=== PATIENT | female | born 1950 | race Caucasian/White ===

== ENCOUNTER 2016-02-20 14:45 | Outpatient (RCR) | payer MEDICARE, BC ==
[~2016-02-20 14:45] MED LIST: ANTIVERT 25MG25 MG PO; MILLIPRED5 MG PO; PREMARIN 0.60.625 M1 PO; TYLENOL EXTRA500 M1 PO; XANAX XR1 MG PO; XANAX0.5 MG PO; [UNRECOGNIZED DRUG - OTHER] PO
[2016-02-20] MEDS ORDERED: ROCEPHIN 2 G2 G/VIAL IM (15:35)
[2016-02-20 15:45] VITALS: BP 164/65
[2016-02-21 07:50] VITALS: BP 138/73
[2016-02-24 07:41] VITALS: BP 129/49
[2016-02-25 07:59] VITALS: BP 118/60
[2016-02-26 08:05] VITALS: BP 112/56
== END 2016-05-20 | disposition home or self-care (01) ==
LOC: AMSURD 14:45
DX: J20.9 Acute bronchitis, unspecified (principal)
CPT/HCPCS: J0696

== ENCOUNTER 2016-06-22 15:30 | Outpatient (RCR) | payer MEDICARE, BC ==
[~2016-06-22] VITALS: Ht 162.6 cm; Wt 53.6 kg
[~2016-06-22 15:30] MED LIST changes: +ROCEPHIN 2 G2 G/VIAL IM
[2016-06-22] MEDS ORDERED: DRAMAMINE LESS25 MG PO (15:53)
[2016-06-22 16:00] VITALS: BP 138/88
[2016-06-23 07:36] VITALS: BP 106/43
[2016-06-24 07:36] VITALS: BP 141/67
[2016-06-25 07:34] VITALS: BP 116/37
[2016-06-26 07:32] VITALS: BP 134/46
[2016-06-27 07:40] VITALS: BP 128/77
[2016-06-28 07:30] VITALS: BP 123/61
[2016-06-28] MEDS ORDERED: ZANTAC150 M1 PO (07:37)
== END 2016-09-20 | disposition home or self-care (01) ==
LOC: AMSURD
DX: J20.9 Acute bronchitis, unspecified (principal)
CPT/HCPCS: J0696

== ENCOUNTER 2017-05-05 09:50 | Outpatient (RCR) | payer MEDICARE, BC ==
[~2017-05-05] VITALS: Ht 162.6 cm; Wt 52.7 kg
[~2017-05-05 09:50] MED LIST changes: +DRAMAMINE LESS25 MG PO; +ZANTAC150 M1 PO
[2017-05-05 10:27] VITALS: BP 110/53
[2017-05-06 09:36] VITALS: BP 132/80
[2017-05-07 09:45] VITALS: BP 123/54
[2017-05-08 09:40] VITALS: BP 108/61
[2017-05-09 09:51] VITALS: BP 123/42
[2017-05-10 09:59] VITALS: BP 144/86
[2017-05-11 09:53] VITALS: BP 106/71
== END 2017-05-11 13:11 | disposition home or self-care (01) ==
LOC: AMSURD 09:50
DX: J20.9 Acute bronchitis, unspecified (principal); Z88.1 Allergy status to other antibiotic agents
CPT/HCPCS: J0696

== ENCOUNTER 2017-05-13 10:31 | Outpatient (RCR) | payer MEDICARE, BC ==
[~2017-05-13] VITALS: Ht 162.6 cm; Wt 52.7 kg
[2017-05-13 10:59] VITALS: BP 127/89
[2017-05-14 09:59] VITALS: BP 115/52
[2017-05-15 10:40] VITALS: BP 135/82
[2017-05-16 09:23] VITALS: BP 125/80
[2017-05-17 11:08] VITALS: BP 126/46
[2017-05-18 11:31] VITALS: BP 115/68
[2017-05-19 09:14] VITALS: BP 119/56
== END 2017-05-19 09:20 | disposition home or self-care (01) ==
LOC: AMSURD 10:31
DX: J20.9 Acute bronchitis, unspecified (principal)
CPT/HCPCS: J0696

== ENCOUNTER → 2017-06-07 | Outpatient (CLI) | payer MEDICARE, BC ==
[2017-05-19 09:14] VITALS: BP 119/56
[2017-06-07 09:05] LABS: EOS # 0.4 (0.04-0.40); EOS % 7.4 % (1.0-5.0); HEMATOCRIT 48.4 % (37.0-47.0); HEMOGLOBIN 15.5 g/dL (12.5-16.0); LYMPH# 1.6 (1.50-4.00); MEAN CELL VOLUME 100 fl (78-100); MEAN CORPUSCULAR HEMOGLOBIN 32 pg (27-31); MEAN CORPUSCULAR HGB CONC 32 g/dL (33-37); MEAN PLATELET VOLUME 10.5 fl (7.4-10.4); MONO # 0.4 (0.20-0.80); NEU # 2.5 (1.40-6.50); PLATELET COUNT 177 K/mm3 (130-400); RED BLOOD COUNT 4.83 M/mm3 (4.10-5.30); RED CELL DISTRIBUTION WIDTH 13.4 % (11.5-14.5); WHITE BLOOD COUNT 4.9 K/mm3 (4.8-10.8)
[2017-06-07 09:13] LABS: BUN/CREATININE RATIO 9.1 (6.0-26.0); CALCIUM 8.8 mg/dL (8.4-10.2); POTASSIUM 4.5 mmol/L (3.6-5.0); TOTAL BILIRUBIN 0.6 mg/dL (0.2-1.3); TOTAL PROTEIN 7.5 g/dL (6.3-8.2)
[2017-06-07 10:21] LABS: ERYTHROCYTE SEDIMENTATION RATE 3 mm/hr (0-30)
== END ==
LOC: LAB 08:24
PROVIDERS: Internal Medicine
DX: J20.8 Acute bronchitis due to other specified organisms (principal); E78.5 Hyperlipidemia, unspecified; E04.2 Nontoxic multinodular goiter; Z12.11 Encounter for screening for malignant neoplasm of colon; Z88.1 Allergy status to other antibiotic agents

== ENCOUNTER → 2017-06-10 | Outpatient (CLI) | payer MEDICARE, BC ==
[2017-05-19 09:14] VITALS: BP 119/56
== END ==
LOC: LAB 09:27
DX: Z12.11 Encounter for screening for malignant neoplasm of colon (principal); Z88.1 Allergy status to other antibiotic agents

== ENCOUNTER 2018-01-15 07:39 | Outpatient (RCR) | payer MEDICARE, BC ==
[2018-01-07 08:13] VITALS: BP 133/71
[2018-01-08 07:45] VITALS: BP 130/55
--- NOTE | 2018-01-08 08:05 | NUR ---
Offered pt ventralgluteal site due to volume of IM injection but pt refused. Given Right dorsal gluteal per request. Pt refuses to stay for 15-20 minutes as states this is the drug I always get as it's the only one that works.
[2018-01-09 07:40] VITALS: BP 154/78
[2018-01-09 07:44] VITALS: BP 142/70
[2018-01-10 07:54] VITALS: BP 167/51
[2018-01-11 07:52] VITALS: BP 129/70
[2018-01-12 07:39] VITALS: BP 136/64
--- NOTE | 2018-01-12 07:50 | NUR ---
IM injection given to R dorsogluteal in single injection per pt request. Discuss s/e of giving single injection >2ml, pt reports understanding but refuses to have given in two injection sites.
[2018-01-13 07:30] VITALS: BP 127/89
[2018-01-14 07:32] VITALS: BP 100/43
[~2018-01-15] VITALS: Ht 162.6 cm; Wt 52.7 kg
[2018-01-15 07:40] VITALS: BP 127/78
== END 2018-01-15 09:00 | disposition home or self-care (01) ==
LOC: AMSURD 07:39
DX: J40 Bronchitis, not specified as acute or chronic (principal); J32.9 Chronic sinusitis, unspecified
CPT/HCPCS: J0696

== ENCOUNTER → 2018-03-08 | Outpatient (CLI) | payer MEDICARE, BC | LOC: LAB 07:24 | DX: E74.39 Other disorders of intestinal carbohydrate absorption (principal) ==

== ENCOUNTER → 2018-07-26 | Outpatient (CLI) | payer MEDICARE, BC ==
[~2018-07-26] VITALS: Ht 162.6 cm; Wt 52.7 kg
[~2018-07-26] MED LIST changes: +[UNRECOGNIZED DRUG - OTHER] PO
[2018-07-26 13:18] LABS: EOS # 0.3 (0.04-0.40); EOS % 5.3 % (1.0-5.0); HEMATOCRIT 47.9 % (37.0-47.0); HEMOGLOBIN 15.6 g/dL (12.5-16.0); LYMPH# 1.5 (1.50-4.00); MEAN CELL VOLUME 99 fl (78-100); MEAN CORPUSCULAR HEMOGLOBIN 32 pg (27-31); MEAN CORPUSCULAR HGB CONC 33 g/dL (33-37); MEAN PLATELET VOLUME 10.3 fl (7.4-10.4); MONO # 0.3 (0.20-0.80); NEU # 2.6 (1.40-6.50); PLATELET COUNT 164 K/mm3 (130-400); RED BLOOD COUNT 4.83 M/mm3 (4.10-5.30); RED CELL DISTRIBUTION WIDTH 13.3 % (11.5-14.5); WHITE BLOOD COUNT 4.7 K/mm3 (4.8-10.8)
[2018-07-26 13:32] LABS: ALBUMIN 4.3 g/dL (3.5-5.0); POTASSIUM 4.1 mmol/L (3.6-5.0); TOTAL BILIRUBIN 0.7 mg/dL (0.2-1.3); TOTAL PROTEIN 7.4 g/dL (6.3-8.2)
[2018-07-26 14:43] LABS: ERYTHROCYTE SEDIMENTATION RATE 2 mm/hr (0-30)
[2018-07-26 15:40] VITALS: BP 120/64
[2018-07-29 20:42] LABS: VITAMIN C AMS
== END ==
LOC: RAD 12:09
PROVIDERS: Internal Medicine
DX: Z12.11 Encounter for screening for malignant neoplasm of colon (principal); E78.2 Mixed hyperlipidemia; K90.89 Other intestinal malabsorption; E04.2 Nontoxic multinodular goiter; J44.9 Chronic obstructive pulmonary disease, unspecified

== ENCOUNTER → 2018-08-04 | Outpatient (CLI) | payer MEDICARE, BC ==
[2018-07-26 15:40] VITALS: BP 120/64
[2018-08-04 15:09] LABS: URINE WBC 0 /hpf (0-3)
[2018-08-04 16:39] LABS: URINE APPEARANCE CLEAR; URINE BILIRUBIN NEGATIVE (NEGATIVE); URINE BLOOD 50 ery/uL (NEGATIVE); URINE COLOR LT YELLOW; URINE GLUCOSE NEGATIVE (NEGATIVE); URINE KETONE NEGATIVE (NEGATIVE); URINE LEUKOCYTE ESTERASE NEGATIVE (NEGATIVE); URINE NITRATE NEGATIVE (NEGATIVE); URINE PROTEIN(semi-quant) NEGATIVE (NEGATIVE); URINE UROBILINOGEN NORMAL (NORMAL)
== END ==
LOC: RAD 15:05
PROVIDERS: Internal Medicine
DX: E04.2 Nontoxic multinodular goiter (principal); R39.15 Urgency of urination

== ENCOUNTER → 2018-08-05 | Outpatient (CLI) | payer MEDICARE, BC ==
[2018-07-26 15:40] VITALS: BP 120/64
== END ==
LOC: LAB 11:22
DX: Z12.11 Encounter for screening for malignant neoplasm of colon (principal); K90.9 Intestinal malabsorption, unspecified

== ENCOUNTER → 2018-09-30 | Outpatient (CLI) | payer MEDICARE, BC ==
[2018-07-26 15:40] VITALS: BP 120/64
[2018-09-30 15:43] LABS: URINE APPEARANCE HAZY; URINE BILIRUBIN NEGATIVE (NEGATIVE); URINE BLOOD 50 ery/uL (NEGATIVE); URINE COLOR YELLOW; URINE GLUCOSE NEGATIVE (NEGATIVE); URINE KETONE NEGATIVE (NEGATIVE); URINE LEUKOCYTE ESTERASE NEGATIVE (NEGATIVE); URINE NITRATE NEGATIVE (NEGATIVE); URINE PROTEIN(semi-quant) NEGATIVE (NEGATIVE); URINE UROBILINOGEN NORMAL (NORMAL)
== END ==
LOC: LAB 08:15
PROVIDERS: Internal Medicine
DX: R39.15 Urgency of urination (principal)

== ENCOUNTER → 2018-10-13 | Outpatient (CLI) | payer MEDICARE, BC ==
[2018-07-26 15:40] VITALS: BP 120/64
[2018-10-19 02:22] LABS: VITAMIN C AMS
== END ==
LOC: LAB 09:29
PROVIDERS: Internal Medicine
DX: K90.89 Other intestinal malabsorption (principal); R39.15 Urgency of urination

== ENCOUNTER → 2019-02-21 | Outpatient (CLI) | payer MEDICARE, BC ==
[~2019-02-21] VITALS: Ht 162.6 cm; Wt 52.7 kg
[2019-02-21 12:30] VITALS: BP 138/71
== END ==
LOC: AMSURD 12:26
DX: R00.0 Tachycardia, unspecified (principal)

== ENCOUNTER → 2019-03-02 | Outpatient (CLI) | payer MEDICARE, BC ==
[~2019-03-02] VITALS: Ht 162.6 cm; Wt 52.7 kg
[2019-03-02 09:35] LABS: EOS # 0.2 (0.04-0.40); EOS % 3.3 % (1.0-5.0); HEMATOCRIT 50.2 % (37.0-47.0); HEMOGLOBIN 16.5 g/dL (12.5-16.0); LYMPH# 1.6 (1.50-4.00); MEAN CELL VOLUME 99 fl (78-100); MEAN CORPUSCULAR HEMOGLOBIN 33 pg (27-31); MEAN CORPUSCULAR HGB CONC 33 g/dL (33-37); MEAN PLATELET VOLUME 10.3 fl (7.4-10.4); MONO # 0.3 (0.20-0.80); NEU # 3.9 (1.40-6.50); PLATELET COUNT 191 K/mm3 (130-400); RED BLOOD COUNT 5.06 M/mm3 (4.10-5.30); RED CELL DISTRIBUTION WIDTH 12.9 % (11.5-14.5)
[2019-03-02 09:53] VITALS: BP 141/55
[2019-03-02 09:57] LABS: ALBUMIN 4.3 g/dL (3.4-4.8); POTASSIUM 3.6 mmol/L (3.5-5.1)
[2019-03-02 09:59] LABS: CALCIUM 9.3 mg/dL (8.3-10.5)
[2019-03-02 10:00] LABS: TOTAL PROTEIN 7.6 g/dL (6.2-8.1)
[2019-03-02 10:02] LABS: TOTAL BILIRUBIN 0.7 mg/dL (0.2-1.2)
== END ==
LOC: AMSURD 09:20
PROVIDERS: Internal Medicine
DX: I47.1 Supraventricular tachycardia (principal); K90.89 Other intestinal malabsorption

== ENCOUNTER → 2019-11-27 | Outpatient (CLI) | payer MEDICARE, BC ==
[2019-03-02 09:53] VITALS: BP 141/55
[2019-11-27 09:28] LABS: HEMATOCRIT 45.1 % (37.0-47.0); HEMOGLOBIN 14.5 g/dL (12.5-16.0); MEAN PLATELET VOLUME 10.3 fl (7.4-10.4); RED BLOOD COUNT 4.37 M/mm3 (4.10-5.30); WHITE BLOOD COUNT 6.1 K/mm3 (4.8-10.8)
[2019-11-27 09:33] LABS: POTASSIUM 3.9 mmol/L (3.5-5.1)
[2019-11-27 09:34] LABS: CALCIUM 8.7 mg/dL (8.3-10.5)
[2019-11-27 09:42] LABS: MAGNESIUM 1.89 mg/dL (1.60-2.60)
== END ==
LOC: LAB 09:03
PROVIDERS: Internal Medicine
DX: I47.1 Supraventricular tachycardia (principal); R91.1 Solitary pulmonary nodule

== ENCOUNTER → 2020-05-06 | Outpatient (CLI) | payer MEDICARE, BC ==
[2019-03-02 09:53] VITALS: BP 141/55
== END ==
LOC: LAB 08:46
PROVIDERS: Internal Medicine Hematology & Oncology
DX: C34.91 Malignant neoplasm of unspecified part of right bronchus or lung (principal)

== ENCOUNTER 2020-11-10 06:03 | Outpatient (RCR) | payer MEDICARE, BC ==
[2020-11-05 06:15] VITALS: BP 122/79
[2020-11-06 06:10] VITALS: BP 125/62
[2020-11-07 06:12] VITALS: BP 113/62
[2020-11-08 06:11] VITALS: BP 131/78
[2020-11-09 06:16] VITALS: BP 120/63
[~2020-11-10 06:03] MED LIST changes: +CYANOCOBAL1000 MCG/1 IM; +DILTIAZEM 12HR120 MG PO; +VITAMIN C PUR1000 MG PO; +VITAMIN D21250 MC1 PO
[2020-11-10 06:15] VITALS: BP 151/87
== END 2020-11-10 08:00 | disposition home or self-care (01) ==
LOC: AMSURD 06:03
DX: C34.90 Malignant neoplasm of unspecified part of unspecified bronchus or lung (principal); J44.9 Chronic obstructive pulmonary disease, unspecified
CPT/HCPCS: J0696

== ENCOUNTER → 2021-09-10 | Outpatient (CLI) | payer MEDICARE, BC | LOC: RAD 11:23 | DX: J92.9 Pleural plaque without asbestos (principal); J98.4 Other disorders of lung ==

== ENCOUNTER → 2021-10-21 | Outpatient (CLI) | payer MEDICARE, BC ==
[2021-10-21 22:38] LABS: CORTISOL RANDOM 17 ug/dL (3-20)
[2021-10-22 17:47] LABS: ADRENOCORTICOTROPIC HORMONE 7 pg/mL (5-27)
== END ==
LOC: LAB 09:46
PROVIDERS: Internal Medicine
DX: C34.31 Malignant neoplasm of lower lobe, right bronchus or lung (principal); J43.9 Emphysema, unspecified; R53.83 Other fatigue

== ENCOUNTER → 2021-11-15 | Outpatient (CLI) | payer MEDICARE, BC ==
[2021-11-15 15:58] LABS: HEMATOCRIT 30.1 % (37.0-47.0); HEMOGLOBIN 9.8 g/dL (12.5-16.0); MEAN CELL VOLUME 109 fl (78-100); MEAN CORPUSCULAR HEMOGLOBIN 36 pg (27-31); MEAN CORPUSCULAR HGB CONC 33 g/dL (33-37); MEAN PLATELET VOLUME 11.1 fl (7.4-10.4); RED BLOOD COUNT 2.76 M/mm3 (4.10-5.30); RED CELL DISTRIBUTION WIDTH 16.5 % (11.5-14.5); WHITE BLOOD COUNT 2.3 K/mm3 (4.8-10.8)
[2021-11-15 16:10] LABS: ALBUMIN 3.7 g/dL (3.4-4.8)
[2021-11-15 16:11] LABS: POTASSIUM 3.4 mmol/L (3.5-5.1)
[2021-11-15 16:13] LABS: TOTAL PROTEIN 6.5 g/dL (6.2-8.1)
[2021-11-15 16:15] LABS: TOTAL BILIRUBIN 0.5 mg/dL (0.2-1.2)
[2021-11-15 16:30] LABS: D-DIMER 1.99 mg/L FEU (0.15-0.50)
[2021-11-15 16:36] LABS: PLATELET COUNT 38 K/mm3 (130-400)
[2021-11-15 16:37] LABS: MONOCYTE 14 % (3-10); NEUTROPHILS 39 % (42-75)
[2021-11-15 16:38] LABS: LYMPHOCYTE 45 % (20-51)
== END ==
LOC: LAB 15:35
PROVIDERS: Physician Assistant
DX: Z51.11 Encounter for antineoplastic chemotherapy (principal); C34.90 Malignant neoplasm of unspecified part of unspecified bronchus or lung

== ENCOUNTER → 2022-05-26 | Outpatient (CLI) | payer MEDICARE, BC ==
[2022-05-26 16:57] LABS: BASO # 0.02 K/mm3 (0.02-0.10); EOS # 0.01 K/mm3 (0.04-0.40); EOS % 0.2 % (1.0-5.0); HEMATOCRIT 47.7 % (37.0-47.0); HEMOGLOBIN 15.7 g/dL (12.5-16.0); LYMPH# 0.86 K/mm3 (1.50-4.00); MEAN CELL VOLUME 96 fl (78-100); MEAN CORPUSCULAR HEMOGLOBIN 32 pg (27-31); MEAN CORPUSCULAR HGB CONC 33 g/dL (33-37); MEAN PLATELET VOLUME 10.4 fl (7.4-10.4); MONO # 0.27 K/mm3 (0.20-0.80); NEU # 3.93 K/mm3 (1.40-6.50); PLATELET COUNT 102 K/mm3 (130-400); RED BLOOD COUNT 4.96 M/mm3 (4.10-5.30); RED CELL DISTRIBUTION WIDTH 13.9 % (11.5-14.5); WHITE BLOOD COUNT 5.1 K/mm3 (4.8-10.8)
[2022-05-26 17:15] LABS: ALBUMIN 4.1 g/dL (3.4-4.8); POTASSIUM 3.9 mmol/L (3.5-5.1)
[2022-05-26 17:16] LABS: CALCIUM 9.6 mg/dL (8.3-10.5)
[2022-05-26 17:17] LABS: TOTAL PROTEIN 7.7 g/dL (6.2-8.1)
[2022-05-26 17:19] LABS: TOTAL BILIRUBIN 0.6 mg/dL (0.2-1.2)
[2022-05-26 17:33] LABS: URINE APPEARANCE HAZY; URINE BILIRUBIN 2+ (NEGATIVE); URINE BLOOD 250 ery/uL (NEGATIVE); URINE COLOR YELLOW; URINE GLUCOSE NEGATIVE (NEGATIVE); URINE KETONE NEGATIVE (NEGATIVE); URINE LEUKOCYTE ESTERASE NEGATIVE (NEGATIVE); URINE MUCUS PRESENT (NOT PRESENT); URINE NITRATE NEGATIVE (NEGATIVE); URINE PROTEIN(semi-quant) 2+ (NEGATIVE); URINE UROBILINOGEN 4 mg/dL (NORMAL); URINE WBC 0-1 /hpf (0-3)
[2022-05-26 18:03] LABS: ERYTHROCYTE SEDIMENTATION RATE 34 mm/hr (0-30)
== END ==
LOC: LAB 16:25
PROVIDERS: Internal Medicine
DX: U07.1 COVID-19 (principal); C34.31 Malignant neoplasm of lower lobe, right bronchus or lung; J43.9 Emphysema, unspecified

== ENCOUNTER → 2023-04-08 | Outpatient (CLI) | payer MEDICARE, BC ==
[2023-04-08 15:55] LABS: BASO # 0.04 K/mm3 (0.02-0.10); EOS # 0.18 K/mm3 (0.04-0.40); EOS % 3.7 % (1.0-5.0); HEMATOCRIT 42.8 % (37.0-47.0); HEMOGLOBIN 13.6 g/dL (12.5-16.0); LYMPH# 1.47 K/mm3 (1.50-4.00); MEAN CELL VOLUME 103 fl (78-100); MEAN CORPUSCULAR HEMOGLOBIN 33 pg (27-31); MEAN CORPUSCULAR HGB CONC 32 g/dL (33-37); MEAN PLATELET VOLUME 9.3 fl (7.4-10.4); MONO # 0.35 K/mm3 (0.20-0.80); NEU # 2.81 K/mm3 (1.40-6.50); PLATELET COUNT 223 K/mm3 (130-400); RED BLOOD COUNT 4.14 M/mm3 (4.10-5.30); RED CELL DISTRIBUTION WIDTH 12.8 % (11.5-14.5); WHITE BLOOD COUNT 4.9 K/mm3 (4.8-10.8)
[2023-04-08 16:06] LABS: ALBUMIN 3.6 g/dL (3.4-4.8); SODIUM 142 mmol/L (136-145)
[2023-04-08 16:07] LABS: CALCIUM 9.6 mg/dL (8.3-10.5)
[2023-04-08 16:08] LABS: TOTAL PROTEIN 7.2 g/dL (6.2-8.1)
[2023-04-08 16:09] LABS: CARBON DIOXIDE 25 mmol/L (23-31); GLUCOSE 84 mg/dL (65-105)
[2023-04-08 16:10] LABS: TOTAL BILIRUBIN 0.3 mg/dL (0.2-1.2)
[2023-04-08 16:14] LABS: AST-SGOT 11 U/L (5-34)
[2023-04-08 16:19] LABS: ALT/SGPT < 6 U/L (0-55)
[2023-04-08 17:52] LABS: ERYTHROCYTE SEDIMENTATION RATE 41 mm/hr (0-30)
== END ==
LOC: LAB 15:35
PROVIDERS: Internal Medicine
DX: J43.9 Emphysema, unspecified (principal); J44.9 Chronic obstructive pulmonary disease, unspecified; F41.1 Generalized anxiety disorder; K90.9 Intestinal malabsorption, unspecified; E78.5 Hyperlipidemia, unspecified

== ENCOUNTER → 2023-07-24 | Outpatient (CLI) | payer MEDICARE, BC ==
[~2023-07-24] VITALS: Ht 162.6 cm; Wt 54.1 kg
[~2023-07-24] MED LIST changes: +BACTRIM DS TAB1 EACH PO; +COMPAZINE10 M2 PO; +ONDANSETRON HYDR4 MG PO; +SEPTRA DS 8001 TAB PO
[2023-07-24 10:04] VITALS: BP 142/81
[2023-07-24 10:40] LABS: HEMATOCRIT 37.1 % (37.0-47.0); HEMOGLOBIN 12.1 g/dL (12.5-16.0); MEAN CELL VOLUME 100 fl (78-100); MEAN CORPUSCULAR HEMOGLOBIN 32 pg (27-31); MEAN CORPUSCULAR HGB CONC 33 g/dL (33-37); MEAN PLATELET VOLUME 11.5 fl (7.4-10.4); PLATELET COUNT 84 K/mm3 (130-400); RED BLOOD COUNT 3.73 M/mm3 (4.10-5.30); WHITE BLOOD COUNT 13.4 K/mm3 (4.8-10.8)
[2023-07-24 10:48] LABS: TOTAL BILIRUBIN 0.5 mg/dL (0.2-1.2)
[2023-07-24 11:40] LABS: BAND 11 % (0-10); LYMPHOCYTE 7 % (20-51); METAMYELOCYTE 7 % (0-0); MONOCYTE 6 % (3-10); MYELOCYTE 2 % (0-0); NEUTROPHILS 65 % (42-75); NUCLEATED RED BLOOD CELL 1 (0-6)
== END ==
LOC: LAB 09:21
DX: D70.1 Agranulocytosis secondary to cancer chemotherapy (principal); D61.810 Antineoplastic chemotherapy induced pancytopenia; T45.1X5A Adverse effect of antineoplastic and immunosuppressive drugs, initial encounter; E87.6 Hypokalemia; C80.1 Malignant (primary) neoplasm, unspecified
CPT/HCPCS: J1644

== ENCOUNTER → 2023-08-04 | Outpatient (CLI) | payer MEDICARE, BC ==
[2023-08-04 10:17] LABS: BASO # 0.02 K/mm3 (0.02-0.10); EOS # 0.27 K/mm3 (0.04-0.40); EOS % 5.2 % (1.0-5.0); HEMATOCRIT 34.8 % (37.0-47.0); HEMOGLOBIN 11.1 g/dL (12.5-16.0); LYMPH# 1.03 K/mm3 (1.50-4.00); MEAN CELL VOLUME 104 fl (78-100); MEAN CORPUSCULAR HEMOGLOBIN 33 pg (27-31); MEAN CORPUSCULAR HGB CONC 32 g/dL (33-37); MEAN PLATELET VOLUME 10.3 fl (7.4-10.4); MONO # 0.53 K/mm3 (0.20-0.80); NEU # 3.36 K/mm3 (1.40-6.50); PLATELET COUNT 108 K/mm3 (130-400); RED BLOOD COUNT 3.35 M/mm3 (4.10-5.30); RED CELL DISTRIBUTION WIDTH 15.1 % (11.5-14.5); WHITE BLOOD COUNT 5.2 K/mm3 (4.8-10.8)
[2023-08-04 11:46] LABS: ALBUMIN 2.9 g/dL (3.4-4.8)
[2023-08-04 11:48] LABS: CALCIUM 8.9 mg/dL (8.3-10.5)
[2023-08-04 11:49] LABS: TOTAL PROTEIN 5.1 g/dL (6.2-8.1)
[2023-08-04 11:51] LABS: TOTAL BILIRUBIN 0.6 mg/dL (0.2-1.2)
== END ==
LOC: LAB 09:25
PROVIDERS: Internal Medicine
DX: J43.9 Emphysema, unspecified (principal)

== ENCOUNTER → 2023-09-03 | Outpatient (CLI) | payer MEDICARE, BC ==
[2023-09-03 13:05] LABS: HEMOGLOBIN 12.4 g/dL (12.5-16.0); MEAN CELL VOLUME 105 fl (78-100); MEAN CORPUSCULAR HEMOGLOBIN 33 pg (27-31); MEAN CORPUSCULAR HGB CONC 32 g/dL (33-37); MEAN PLATELET VOLUME 12.8 fl (7.4-10.4); PLATELET COUNT 55 K/mm3 (130-400); RED BLOOD COUNT 3.73 M/mm3 (4.10-5.30); RED CELL DISTRIBUTION WIDTH 15.9 % (11.5-14.5)
[2023-09-03 13:08] LABS: ALBUMIN 3.3 g/dL (3.4-4.8)
[2023-09-03 13:09] LABS: CALCIUM 8.8 mg/dL (8.3-10.5)
[2023-09-03 13:11] LABS: TOTAL PROTEIN 5.5 g/dL (6.2-8.1)
[2023-09-03 13:17] LABS: MAGNESIUM 1.8 mg/dL (1.60-2.60)
[2023-09-03 14:03] LABS: BAND 9 % (0-10); LYMPHOCYTE 19 % (20-51); MONOCYTE 12 % (3-10); NEUTROPHILS 60 % (42-75)
== END ==
LOC: LAB 12:09
PROVIDERS: Internal Medicine
DX: R50.9 Fever, unspecified (principal)

== ENCOUNTER 2023-09-14 09:00 | Outpatient (RCR) | payer MEDICARE, BC | END 2023-10-08 | disposition home or self-care (01) | LOC: SPEECH | DX: R05.9 Cough, unspecified (principal) ==

== ENCOUNTER 2023-10-01 13:09 | Emergency (ER) | payer MEDICARE, BC ==
[~2023-10-01 13:09] MED LIST changes: +Albuterol/Ipratropium 3 MG-0.5 MG/3 ML Neb Soln IH ONE; +NS 1,000 ML IV ONE; +cefTRIAXone 1 G in Water For Injection,Sterile 10 ML IV ONE
[2023-11-05 01:58] LABS: ALBUMIN 2.9 g/dL (3.4-4.8); CALCIUM 8.6 mg/dL (8.3-10.5)
[2023-11-05 02:00] LABS: HEMOGLOBIN 12.1 g/dL (12.5-16.0); MEAN CELL VOLUME 106 fl (78-100); MEAN CORPUSCULAR HEMOGLOBIN 34 pg (27-31); MEAN CORPUSCULAR HGB CONC 32 g/dL (33-37); MEAN PLATELET VOLUME 13.6 fl (7.4-10.4); RED BLOOD COUNT 3.59 M/mm3 (4.10-5.30); RED CELL DISTRIBUTION WIDTH 14.1 % (11.5-14.5); WHITE BLOOD COUNT 7.1 K/mm3 (4.8-10.8)
[2023-11-05 02:01] LABS: PLATELET COUNT 26 K/mm3 (130-400)
[2023-11-05 02:02] LABS: LYMPHOCYTE 15 % (20-51); MONOCYTE 2 % (3-10); NEUTROPHILS 83 % (42-75)
[2023-11-05 02:03] LABS: URINE APPEARANCE SLIGHTLY CLOUDY (CLEAR); URINE COLOR DARK YELLOW (YELLOW)
[2023-11-05 02:04] LABS: PH-URINE 8.5 (5.0 - 8.0); URINE BILIRUBIN NEGATIVE (NEGATIVE); URINE BLOOD TRACE (NEGATIVE); URINE GLUCOSE NEGATIVE (NEGATIVE); URINE KETONE NEGATIVE (NEGATIVE); URINE LEUKOCYTE ESTERASE NEGATIVE (NEGATIVE); URINE NITRATE NEGATIVE (NEGATIVE); URINE PROTEIN(semi-quant) NEGATIVE (NEGATIVE)
[2023-11-05 02:06] LABS: PARTIAL THROMBOPLASTIN TIME 29.8 SECONDS (21.0-32.0); PROTHROMBIN TIME 12.4 SECONDS (9.0-12.0)
== END 2023-10-01 17:55 | disposition home or self-care (01) ==
LOC: ED 13:09
PROVIDERS: Physician Assistant
DX: R09.02 Hypoxemia (principal); J18.9 Pneumonia, unspecified organism
CPT/HCPCS: J0696; J1836; J7030

== ENCOUNTER → 2024-08-11 | Outpatient (CLI) | payer MEDICARE, BC ==
[~2024-08-11] MED LIST changes: -Albuterol/Ipratropium 3 MG-0.5 MG/3 ML Neb Soln IH ONE; +DILTIAZEM 24HR120 M2 PO; +FUROSEMIDE20 MG PO; +LIDOCAINE TP; +MEDI-FIRST ASP325 MG PO; -NS 1,000 ML IV ONE; +POTASSIUM CHLO20 ME4 PO; +PRILOCAINE TP; +PROAIR HFA0.09 MG/AC IH; -TYLENOL EXTRA500 M1 PO; +TYLENOL EXTRA500 M2 PO; -VITAMIN D21250 MC1 PO; +VITAMIN D21250 MCG PO; +XANAX0.5 M1 PO; -XANAX0.5 MG PO; +[UNRECOGNIZED DRUG - OTHER] TP; -cefTRIAXone 1 G in Water For Injection,Sterile 10 ML IV ONE
== END ==
LOC: RAD 08:48 → MAMMO 09:00
DX: Z13.820 Encounter for screening for osteoporosis (principal); M85.851 Other specified disorders of bone density and structure, right thigh